=== PATIENT | male | born 1955 | race Caucasian/White ===

== ENCOUNTER 2017-04-09 15:28 | Emergency (ER) | payer OTHER ==
[2017-04-09 16:23] LABS: BASOPHIL 0.5 % (0-2); EOSINOPHIL 2.6 % (0-5); HGB 14.6 g/dl (13.2-18.0); LYMPHOCYTE 10.9 % (15-48); MCH 32.4 pg (25.0-31.0); MCHC 35.6 g/dL (32.0-36.0); MCV 91.1 fL (78.0-100.0); MONOCYTE 9.6 % (0-12); MPV 10.9 fL (6.0-9.5); NEUTROPHIL 76.4 % (41-80); PLT 214 K/uL (150-400); WBC 12.5 K/uL (4.0-10.5)
[2017-04-09 16:39] LABS: BILIRUBIN NEGATIVE (NEGATIVE); BLOOD TRACE-LYSED Ery/uL (NEGATIVE); CLARITY CLEAR (CLEAR); COLOR YELLOW (YELLOW); GLUCOSE (U) NORMAL (NORMAL); KETONE (U) NEGATIVE (NEGATIVE); LEUKOCYTES NEGATIVE Leu/uL (NEGATIVE); NITRITE NEGATIVE (NEGATIVE); PROTEIN NEGATIVE (NEGATIVE); SPECIFIC GRAVITY >=1.030 (1.001-1.030); UROBILINOGEN 0.2 mg/dL (0.2-1.0); pH 5.5 (5.0-9.0)
[2017-04-09 16:43] LABS: ALBUMIN 4.7 g/dL (3.4-4.8); BILIRUBIN - TOTAL 0.3 mg/dL (0.1-1.0); GLOBULIN (CALCULATION) 2.9 g/dL (2.2-4.2); POTASSIUM 3.8 mmol/L (3.5-5.1); TOTAL PROTEIN 7.6 g/dL (6.4-8.3)
[2017-04-09 16:49] LABS: BACTERIA TRACE
[2017-04-09 16:50] LABS: MUCOUS MODERATE
== END 2017-04-09 17:30 | disposition home or self-care (01) ==
LOC: FER 15:28
PROVIDERS: Internal Medicine
DX: T14.8 Other injury of unspecified body region (principal); S20.211A Contusion of right front wall of thorax, initial encounter; Z23 Encounter for immunization; V23.4XXA Motorcycle driver injured in collision with car, pick-up truck or van in traffic accident, initial encounter; Y92.410 Unspecified street and highway as the place of occurrence of the external cause
CPT/HCPCS: 36415; 71020; 71100; 80053; 81001; 85025; 90471; 90715; J1170; J1885; J2405